=== PATIENT | male | born 1950 | race Caucasian/White ===

== ENCOUNTER 2019-05-02 02:12 | Inpatient (IN) ==
--- NOTE | 2019-04-26 08:18 | EKG Report ---
Test Performed on : 04/26/2019 07:56:41 AM Test Reason : PAT Blood Pressure : / mmHG Vent. Rate : 088 BPM Atrial Rate : 088 BPM P-R Int : 146 ms QRS Dur : 084 ms QT Int : 342 ms P-R-T Axes : 061 013 063 degrees QTc Int : 413 ms Normal sinus rhythm. Possible Inferior infarct , age undetermined Abnormal ECG No previous ECGs available Confirmed by Angle Navarro MD ([id number]) on 04/26/2019 12:25:55 PM
[2019-04-26 08:37] LABS: URINE SOURCE CLEAN CATCH
[2019-04-26 09:03] LABS: BILIRUBIN URINE NEGATIVE (NEGATIVE); BLOOD URINE NEGATIVE (NEGATIVE); COLOR YELLOW; GLUCOSE URINE NEGATIVE (NEGATIVE); KETONE URINE NEGATIVE (NEGATIVE); LEUKOCYTES URINE TRACE (NEGATIVE); NITRITE URINE NEGATIVE (NEGATIVE); PH URINE 5.5; PROTEIN URINE TRACE mg/dL (NEGATIVE); SP GRAVITY URINE 1.018; TURBIDITY URINE HAZY (CLEAR); UROBILINOGEN URINE NORMAL (NORMAL)
[2019-04-26 09:06] LABS: BASO# 0.07 X1000 (0.0-0.2); BASO% 0.7 % (0.0-0.8); EOS# 0.24 X1000 (0.0-0.7); EOS% 2.6 % (0.0-10.0); HEMATOCRIT 46.4 % (42.0-52.0); HEMOGLOBIN 15.5 g/dL (14.0-18.0); IMM GRAN# 0.02 X1000 (0.0-0.04); IMM GRAN% 0.2 % (0.0-0.5); LYMPH# 2.01 X1000 (1.2-3.4); LYMPH% 21.5 % (20.5-51.1); MCH 29.3 PG (27-31); MCHC 33.4 g/dL (33-37); MCV 87.7 FL (81-99); MONO# 0.44 X1000 (0.11-0.59); MONO% 4.7 % (1.7-9.3); NEUT# 6.58 X1000 (1.4-6.5); NEUT% 70.3 % (42.2-75.2); PLT 326 X1000 (130-400); RBC 5.29 XMIL (4.7-6.1); RDW 13.4 % (11.5-14.5); WBC 9.36 X1000 (4.8-10.8)
[2019-04-26 09:08] LABS: INR 0.99; PROTIME 13.2 Seconds (11.0-16.0)
[2019-04-26 09:09] LABS: PTT 27.7 Seconds (22.3-41.8)
[2019-04-26 09:10] LABS: UR EPITHELIAL CELLS >10 /HPF (<10); URINE BACTERIA NEGATIVE /HPF; URINE RBC <10 /HPF (<10); URINE WBC <10 /HPF (<10)
[2019-04-26 09:12] LABS: URINE CASTS NONE SEEN; URINE YEAST NONE SEEN
[2019-04-26 09:21] LABS: AGAP 13; BUN 25 mg/dL (8-22); CALCIUM 10.4 mg/dL (8.8-10.2); CHLORIDE 100 mmol/L (98-107); COSMO 284; CREATININE 1.1 mg/dL (0.7-1.2); ESTIMATED GFR > 60; GLUCOSE 99 mg/dL (70-104); POTASSIUM 4.3 mmol/L (3.5-5.1); SODIUM 140 mmol/L (136-145); TCO2 27 mmol/L (25-35)
[2019-04-26 09:28] LABS: HEMOGLOBIN A1C 6.6 % (4.8-6.0)
[2019-05-02] MEDS ORDERED: TORADOL ONE (07:15)
[2019-05-02] MEDS ORDERED: DURAMORPH ONE (07:15)
[2019-05-02] MEDS ORDERED: VANCOMYCIN ONE (07:16)
[2019-05-02] MEDS ORDERED: SENSORCAINE 0.25%/EPI 1:200,000 ONE (07:16)
[2019-05-02] MEDS ORDERED: SODIUM CHLORIDE 0.9% ONE (07:16)
[2019-05-02] MEDS ORDERED: EXPAREL 1.3% ONE (07:17)
[2019-05-02] MEDS ORDERED: NEOSPORIN G.U. IRRIGANT ONE (07:17)
[2019-05-02] MEDS ORDERED: DIPRIVAN 1% ONE ×2 (07:24→10:19)
[2019-05-02] MEDS ORDERED: LYRICA ONE (07:38)
[2019-05-02] MEDS ORDERED: REGLAN ONE (07:38)
[2019-05-02] MEDS ORDERED: PEPCID ONE (07:38)
[2019-05-02] MEDS ORDERED: COLACE ONE (07:38)
[2019-05-02] MEDS ORDERED: CELEBREX ONE (07:38)
[2019-05-02] MEDS ORDERED: LR 1,000 ML ONE (07:39)
[2019-05-02] MEDS ORDERED: KEFZOL 1 GM/D5W 2 GM/100 ML IVPB ONE (07:39)
[2019-05-02] MEDS ORDERED: D50W SYRINGE IV ONE ×2 (07:49→11:00)
[2019-05-02] MEDS ORDERED: FENTANYL ONE (08:24)
[2019-05-02] MEDS ORDERED: OFIRMEV 1000 MG/ISOTONIC SOLN 1,000 MG/100 ML BOTTLE ONE (08:28)
[2019-05-02] MEDS ORDERED: ZOFRAN ONE (08:28)
[2019-05-02] MEDS ORDERED: DECADRON ONE (08:28)
[2019-05-02] MEDS: CYKLOKAPRON 1,000 MG/NS 2,000 MG/200 ML IVPB ONE ×2 (08:50→10:04)
[2019-05-02 09:35] LABS: URINE SOURCE CATH
[2019-05-02 09:56] LABS: BILIRUBIN URINE NEGATIVE (NEGATIVE); BLOOD URINE NEGATIVE (NEGATIVE); COLOR YELLOW; GLUCOSE URINE NEGATIVE (NEGATIVE); KETONE URINE NEGATIVE (NEGATIVE); LEUKOCYTES URINE NEGATIVE (NEGATIVE); NITRITE URINE NEGATIVE (NEGATIVE); PH URINE 5.5; PROTEIN URINE NEGATIVE (NEGATIVE); SP GRAVITY URINE 1.022; TURBIDITY URINE CLEAR (CLEAR); UROBILINOGEN URINE NORMAL (NORMAL)
[2019-05-02 09:57] LABS: UR EPITHELIAL CELLS <10 /HPF (<10); URINE BACTERIA NEGATIVE /HPF; URINE RBC <10 /HPF (<10); URINE WBC <10 /HPF (<10)
--- NOTE | 2019-05-02 10:51 | OPERATIVE NOTE ---
PROCEDURE DATE: 05/02/2019 PREOPERATIVE DIAGNOSIS: Degenerative joint disease, right knee. POSTOPERATIVE DIAGNOSIS: Degenerative joint disease, right knee. PROCEDURE PERFORMED: Right total knee replacement. SURGEON: Dr. Alba Marie. [employer] CARRIER: Dr. Yossi Guardado. Dr. Guardado was served proper retraction and manipulation of the knee during the case. ANESTHESIA: Spinal. COMPLICATION: None. PROCEDURE IN DETAIL: A 68-year-old male presented for right total knee replacement. Risks, benefits, and no guarantees were discussed, and the patient is willing to proceed. He was taken to the operating room and satisfactory anesthesia obtained. The right leg was prepped and draped in the usual sterile fashion. A time-out was taken to confirm operative site, procedure, and patient. The leg was wrapped with an Esmarch and tourniquet inflated to 350 mmHg. A midline incision was made over the front of the knee followed by quad tendon sparing arthrotomy. The patella was everted and resurfaced with freehand technique. The patella was subluxed laterally and the knee flexed. An intramedullary hole made in the distal femur and the distal femoral cutting block secured in 5 degrees of valgus. Distal femoral resection was then made, and the femur sized to a size 7 femoral implant. The 4-in-1 block was secured and the anterior, posterior, and chamfer cuts sequentially made. Any remaining osteophytes were debrided from the femur. The knee was flexed. A PCL retractor placed behind the tibia, and the tibial cutting block secured. The tibial resection was made. The flexion and extension gaps noted to be roughly equal at 5 mm. Any osteophytes were debrided about the tibia. Tibia was sized to a size 7 tibial tray. A trial reduction was performed with a size 7 tibial tray, a 5 mm thick poly and a size 7 femur with good range of motion and stability. The patella was sized to a 38 medialized dome patella. The drill holes were placed for the patella and the femoral implant, and the trial components removed. The bony surfaces were thoroughly irrigated with pulsatile lavage. Cement with a gram of vancomycin was then utilized to cement a size 7 [employer] rotating platform tibial base plate, a size 7 right cruciate retaining femoral component, and a 38 medialized dome patella. Excess cement was removed while the cement cured. The joint capsule was injected with Exparel and a Hemovac drain placed. A size 7 cruciate retaining polyethylene bearing, 5 mm thick was inserted in the tibial tray and the knee reduced. Final range of motion was 0 to 130 degrees with midline patellar tracking. The arthrotomy was copiously irrigated with irrigant. It was closed over the drain with #1 Vicryl in the arthrotomy, 2-0 Vicryl in the subcutaneous and skin julito on the skin edges. Sterile dressings completed the closure and the patient was recovered from anesthesia and transferred to the recovery room in stable condition. No intraoperative complications were noted. Instrument count and sponge count were correct at the time of closure. cc: MD Yossi Laura MD
[2019-05-02] MEDS ORDERED: NS 1,000 ML ONE (10:55)
[2019-05-02] MEDS ORDERED: OXY IR PO PRN ×2 (11:15)
[2019-05-02] MEDS ORDERED: MORPHINE IV PRN ×3 (11:15)
[2019-05-02] MEDS ORDERED: ZOFRAN IV PRN (11:15)
[2019-05-02] MEDS ORDERED: ZOFRAN ODT PO PRN (11:15)
--- NOTE | 2019-05-02 11:44 | Diag Imaging Result Doc PS360 ---
EXAM: KNEE 1-2 VIEWS-RIGHT 05/02/2019 HISTORY: post op TECHNIQUE: Two views COMMENT: There is a total knee arthroplasty. There is no evidence of fracture or other acute bony abnormality. IMPRESSION: Postsurgical change. Electronically signed by Shahriar Chatman 05/02/2019 11:41 AM
--- NOTE | 2019-05-02 13:06 | ORTHOPAEDICS PROGRESS NOTE ---
DATE: 05/02/2019 SUBJECTIVE DATA: Mr. Farris is seen postoperative day 0 of his right total knee arthroplasty. He reports he is doing well at this time. He states he has not been up with physical therapy yet. He reports he will be going to rehab hopefully at [facility]. OBJECTIVE DATA: There is good sensation in the right lower extremity. There are good pedal pulses. There is good capillary refill in the toes. The bandages are clean and dry at this time. Vital signs are stable. Urinalysis is negative. ASSESSMENT: Degenerative joint disease right knee with a right total knee arthroplasty. PLAN: Plan on monitoring Mr. Farris overnight in the hospital and see how he is doing. We will check back on him in the morning. The plan is hopefully to get him set up for rehab placement on Wednesday. We will check back on him in the morning. Dictated by TAMIE Calixto for Zeferino Marie MD cc: TAMIE Calitxo MD
[2019-05-02] MEDS: ULTRAM PO SCH ×2 (13:28→20:28)
[2019-05-02] MEDS: TYLENOL PO SCH ×2 (13:28→20:29)
[2019-05-02] MEDS: NS 1,000 ML IV SCH ×3 (13:29→20:27)
--- NOTE | 2019-05-02 13:43 | CONSULTATION ---
DATE OF CONSULTATION: 05/02/2019 CHIEF COMPLAINT: This consult is for medical management. The patient is status post right total knee replacement today. HISTORY OF PRESENTING ILLNESS: This is a 68-year-old male who was admitted today to [facility] to the services of Orthopedics for a right total knee replacement. We have been consulted for medical management of this patient. He tolerated his surgery well, is resting comfortably and eating lunch at this time, and we will follow along during this hospitalization. PAST MEDICAL HISTORY: Hypertension and diabetes type 2. PAST SURGICAL HISTORY: Heart stents, right shoulder, left foot, and circumcision. FAMILY HISTORY: Reviewed and noncontributory. SOCIAL HISTORY: Currently lives with family. Denied any tobacco, alcohol or illicit drug use. ALLERGIES: He has no known drug allergies. HOME MEDICATIONS: He takes Celebrex 200 mg p.o. q.a.m., vitamin D3, 2000 units p.o. daily, vitamin B12, 2000 mcg p.o. q.a.m., vitamin D2, 2000 units p.o. q.a.m., glimepiride 4 mg p.o. b.i.d. will be held, lisinopril 20 mg p.o. q.a.m., Glucophage 500 mg p.o. b.i.d. will be held, and pravastatin 20 mg p.o. at bedtime. LABORATORY DATA: White blood cell count of 9.36, hemoglobin 15.5, hematocrit 46.4, platelets 326,000. PT and INR of 13.2 and 0.99. Sodium 140, potassium 4.3, chloride 100, CO2 27, BUN of 25, creatinine 1.1, glucose 99. He did drop his blood sugar prior to his surgery this morning at 50 and was given an amp of D50 and it came back up to 99. Hemoglobin A1c was 6.6. Urinalysis was negative. A right knee x-ray postop showed postsurgical changes. REVIEW OF SYSTEMS: He denied any fever, chills, blurred vision, dizziness, chest pain, coughing, shortness of breath. He denied any abdominal pain, constipation, diarrhea, burning or hurting with urination. States his right knee pain is under control at this time. PHYSICAL EXAMINATION: Vital signs: Temperature 97.5 degrees, pulse 92, respirations 18, blood pressure 135/81, saturating 97% on room air. General: This is a 68-year-old male who is lying in the bed and answers questions appropriately. HEENT: Normocephalic and atraumatic. Normal ENT inspection. Oropharynx and nares are clear. Eyes: Pupils are equal, round, reactive to light and accommodation. Extraocular movements are intact. Neck: Normal inspection, normal range of motion. Lungs: Clear to auscultation bilaterally with equal lung expansion and chest wall movement. Heart: Regular rate and rhythm. No murmurs, rubs, or gallops. Abdomen: Soft, nontender, nondistended. Bowel sounds are present x4 quadrants. Musculoskeletal: 5/5 strength to bilateral upper extremities and left lower. He has a dressing in place to his right knee status post his total knee replacement with ice pack in place. Neurological: The cranial nerves 2-12 appear grossly intact. ASSESSMENT: 1. Status post right total knee replacement today. 2. Diabetes type 2. 3. Hypertension. PLAN: We are going to hold his antidiabetic medications at this time as he was hypoglycemic when he first came in. I think that is probably to him being n.p.o. prior to the surgery, but we will monitor that with pattern blood sugars. Continue his normal saline at 75 mL an hour. Pain control as previously ordered per Orthopedics. He will be on a diabetic diet. We will continue his home medications as previously identified. Recheck a BMP in the a.m. and hemoglobin and hematocrit in the a.m. as well, and further orders as seen by the attending. Thank you for this consultation. We will follow him throughout the remainder of his hospitalization. Dictated by TAMIE Bravo for Kle Najera MD cc: TAMIE Bravo MD John R. Riehl, MD Anna M. Dumas, CRNP
[2019-05-02] MEDS: KEFZOL 2 GM/D5W 2 GM/50 ML IVPB IV SCH (15:36)
--- NOTE | 2019-05-02 16:57 | Diag Imaging Result Doc PS360 ---
CHEST-1 VIEW - 05/02/2019 INDICATION: rehab COMPARISON: None FINDINGS: There are extensive linear opacities in the midlungs bilaterally suggesting atelectasis. There is mild cardiomegaly. Pulmonary vascularity is somewhat distended. No edema. No pneumothorax or pleural effusion. IMPRESSION: Cardiomegaly. Extensive central linear atelectasis bilaterally. Electronically signed by Pool Niño 05/02/2019 4:54 PM
[2019-05-02] MEDS ORDERED: GLUCOPHAGE XR PO SCH (17:00)
[2019-05-02] MEDS: GLUCOPHAGE PO SCH (18:00)
--- NOTE | 2019-05-02 18:54 | CONSULTATION ---
DATE OF CONSULTATION: 05/02/2019 ADDENDUM: A 68-year-old gentleman with diabetes and hypertension, who is here for right knee replacement electively per Dr. Marie. We have been consulted for management. He apparently sees Mehreen Lemus, so had seen her before. In any case, the patient was evaluated. He did have some preoperative hypoglycemia, so we will keep a close eye on him. His physical exam is unremarkable. Regular rate and rhythm. Pulmonary: Bilateral breath sounds, clear to auscultation. ASSESSMENT AND PLAN: 1. As far as his hypertension, we will continue his regular medications and follow. We will monitor blood pressure along with his other medications. 2. Diabetes. He had some hypoglycemia. We will have to be careful. He has had 2 doses of dextrose, but now his sugars have risen to above 200, so I am going to resume his metformin at low dose. He is very nervous about missing his dose. We will see how he does, and keep an eye closely on his blood sugars. 3. Disposition pending his clinical status. Hopefully home soon. I think the plan will be he is going to be here through Wednesday. We will continue to monitor. cc: MD Zeferino Garcia MD
[2019-05-02] MEDS: CELEBREX PO SCH (20:28)
[2019-05-02] MEDS: PRAVACHOL PO SCH (20:29)
[2019-05-02] MEDS: COLACE PO SCH (20:30)
[2019-05-02] MEDS ORDERED: AMARYL PO SCH (21:00)
[2019-05-02] MEDS: HUMULIN R SUBQ SCH (21:28)
[2019-05-03] MEDS: KEFZOL 2 GM/D5W 2 GM/50 ML IVPB IV SCH (00:20)
[2019-05-03] MEDS: HUMULIN R SUBQ SCH ×6 (01:02→21:00)
[2019-05-03] MEDS: ULTRAM PO SCH ×4 (02:19→19:46)
[2019-05-03] MEDS: TYLENOL PO SCH ×4 (02:19→19:45)
[2019-05-03 05:36] LABS: HEMATOCRIT 38.3 % (42.0-52.0); HEMOGLOBIN 12.7 g/dL (14.0-18.0)
[2019-05-03 05:49] LABS: HEMOGLOBIN A1C 6.3 % (4.8-6.0)
[2019-05-03 06:01] LABS: CALCIUM 9.1 mg/dL (8.8-10.2); CREATININE 1.2 mg/dL (0.7-1.2); POTASSIUM 5.1 mmol/L (3.5-5.1)
--- NOTE | 2019-05-03 07:58 | ORTHOPAEDICS PROGRESS NOTE ---
DATE: 05/03/2019 SUBJECTIVE: Mr. Farris in seen status post total knee replacement. OBJECTIVE: He is afebrile with stable vital signs. He did have marginal blood sugars which were elevated, but they are better now. PLAN: He is to be mobilized today. He is inpatient status and we will plan on rehab placement on Wednesday. We will discontinue lines and mobilizing him today. cc: Zeferino Marie MD
[2019-05-03] MEDS ORDERED: ERGOCALCIFEROL PO SCH (09:00)
[2019-05-03] MEDS ORDERED: NON-FORMULARY MED (Celecoxib 200 MG) PO SCH (09:00)
[2019-05-03] MEDS: GLUCOPHAGE PO SCH ×2 (09:08→17:43)
[2019-05-03] MEDS: COLACE PO SCH ×2 (09:08→19:46)
[2019-05-03] MEDS: CELEBREX PO SCH (09:08)
[2019-05-03] MEDS: ASPIRIN PO SCH (09:08)
[2019-05-03] MEDS: VITAMIN D PO SCH (09:09)
[2019-05-03] MEDS: VITAMIN B-12 PO SCH (09:09)
[2019-05-03] MEDS: PEPCID PO SCH (09:09)
[2019-05-03] MEDS: PRINIVIL PO SCH (09:09)
--- NOTE | 2019-05-03 19:15 | PROGRESS NOTE ---
DATE: 05/03/2019 SUBJECTIVE: Patient has no major issues. He is pretty well. He is happy. He seems to be doing well. No major issues. OBJECTIVE: Vital Signs: Blood pressure is 151/84, heart rate of 71, respiratory 16, temperature 98.1 degrees, 95% on room air. Cardiovascular: Regular rate and rhythm. Pulmonary: Bilateral breath sounds. Clear to auscultation. GI: Soft, nontender, nondistended. Bowel sounds are positive. LABORATORY DATA: Hemoglobin and hematocrit 12 and 38. Rest of his labs looked pretty much intact. Sugars are still a little bit on the high side. His A1c is only 6.3. PROBLEM LIST: 1. Type 2 diabetes. We will resume all medications. He had some preoperative hypoglycemia but that seems to have disappeared, so I am going to put him back on his glimepiride. We had already resumed his metformin. His diabetes is very well controlled as an outpatient. We will continue to maintain that here. 2. Hypertension. Continue regular medications. 3. Right total knee replacement, postoperative day 1. Siu is out. He is he is doing well from that standpoint. He does have a little bit of renal insufficiency, so I am going to repeat his basic metabolic tomorrow just to monitor his kidney function. DISPOSITION: Plan will be rehab on Wednesday, which hopefully that will occur Wednesday. I am going to hold the Celebrex just because of his renal insufficiency and we will follow. cc: MD Zeferino Garcia MD
[2019-05-03] MEDS: AMARYL PO SCH (19:30)
[2019-05-03] MEDS: PRAVACHOL PO SCH (19:45)
[2019-05-03] MEDS: PERIDEX MT SCH (19:47)
[2019-05-04] MEDS: ULTRAM PO SCH ×4 (02:33→22:24)
[2019-05-04] MEDS: TYLENOL PO SCH ×4 (02:33→22:24)
[2019-05-04] MEDS: COLACE PO SCH ×3 (03:06→22:23)
[2019-05-04] MEDS: PRAVACHOL PO SCH ×2 (03:06→22:23)
[2019-05-04] MEDS: PERIDEX MT SCH ×3 (03:09→22:23)
[2019-05-04 06:14] LABS: HEMATOCRIT 39.4 % (42.0-52.0); HEMOGLOBIN 12.8 g/dL (14.0-18.0)
[2019-05-04 06:42] LABS: AGAP 10; BUN 33 mg/dL (8-22); CALCIUM 9.3 mg/dL (8.8-10.2); CHLORIDE 101 mmol/L (98-107); COSMO 281; CREATININE 0.9 mg/dL (0.7-1.2); ESTIMATED GFR > 60; GLUCOSE 101 mg/dL (70-104); POTASSIUM 4.6 mmol/L (3.5-5.1); SODIUM 137 mmol/L (136-145); TCO2 26 mmol/L (25-35)
[2019-05-04] MEDS: ASPIRIN PO SCH (09:43)
[2019-05-04] MEDS: PEPCID PO SCH (09:43)
[2019-05-04] MEDS: PRINIVIL PO SCH (09:43)
[2019-05-04] MEDS: VITAMIN B-12 PO SCH (09:44)
[2019-05-04] MEDS: VITAMIN D PO SCH (09:45)
[2019-05-04] MEDS: GLUCOPHAGE PO SCH ×2 (13:10→16:58)
[2019-05-04] MEDS: AMARYL PO SCH ×2 (13:10→22:23)
[2019-05-04] MEDS: HUMULIN R SUBQ SCH ×3 (13:11→22:20)
--- NOTE | 2019-05-04 15:00 | ORTHOPAEDICS PROGRESS NOTE ---
DATE: 05/04/2019 SUBJECTIVE DATA: Mr. Farris is seen for his right total knee arthroplasty that he recently had on Wednesday. He states he has been doing well at this time. He reports that he did get up and walk around the nursing station and then walked back to his room with assistance. OBJECTIVE DATA: Upon examination, the right lower extremity bandages are clean and dry. There is good range of motion of the right knee. There is a negative Homans sign. There are good pedal pulses. There is good capillary refill in the toes. There is good sensation. ASSESSMENT: Degenerative joint disease of right knee with right total knee arthroplasty. PLAN: We will plan on hopefully getting Mr. Farris out tomorrow to rehab. He will need to have his julito removed in rehab. We will need to see him in the office in roughly 10 to 14 days for a recheck. We will check back on him then. We will see him in the morning. Dictated by TAMIE Calixto for Zeferino Marie MD cc: TAMIE Calixto MD
--- NOTE | 2019-05-04 19:20 | PROGRESS NOTE ---
DATE: 05/04/2019 SUBJECTIVE: Patient has no major complaints. OBJECTIVE: Blood pressure is 127/67, heart rate of 96, respiratory rate of 20, temperature 98.4 degrees, 96% on room air.Cardiovascular: Regular rate and rhythm. Pulmonary: Bilateral breath sounds. Clear to auscultation. Gastrointestinal: Soft, nontender, nondistended. Bowel sounds are positive. LABORATORY DATA: Hemoglobin and hematocrit 12 and 39, platelets are okay. Sugars have actually been pretty good on his current medications. PROBLEM LIST: 1. Type 2 diabetes. He is stable on glimepiride and metformin. 2. Hypertension. Also, stable on current medications. DISPOSITION: The plan is, from what I understand, likely rehab tomorrow. We will continue to follow along with you until the patient is stabilized, but anticipate discharge tomorrow. cc: MD Zeferino Garcia MD
[2019-05-05] MEDS: ULTRAM PO SCH ×2 (06:01→10:59)
[2019-05-05] MEDS: TYLENOL PO SCH ×2 (06:03→11:00)
[2019-05-05 06:17] LABS: HEMATOCRIT 40.4 % (42.0-52.0); HEMOGLOBIN 13.1 g/dL (14.0-18.0)
[2019-05-05] MEDS: HUMULIN R SUBQ SCH ×2 (07:00→11:12)
--- NOTE | 2019-05-05 08:15 | DISCHARGE SUMMARY ---
ADMISSION DATE: 05/02/2019 DISCHARGE DATE: 05/05/2019 ADMITTING DIAGNOSIS: Degenerative joint disease of the right knee. DISCHARGE DIAGNOSIS: 1. Degenerative joint disease of the right knee. 2. High blood pressure. 3. Diabetes. 4. Rheumatoid arthritis. PROCEDURE: Right total knee arthroplasty. ALLERGIES: No known drug allergies. PAST MEDICAL HISTORY: Includes anxiety, depression, diabetes, high blood pressure, rheumatoid arthritis. CURRENT MEDICATIONS: Include 1. Celebrex 2 mg daily. 2. Glimepiride 4 mg b.i.d. 3. Lisinopril 20 mg daily. 4. Metformin 500 mg ER b.i.d. 5. Pravastatin 40 mg daily. 6. Vitamin B12 daily. HOSPITAL COURSE: The patient was taken to the operating room on 05/02/2019 for a right total knee arthroplasty. He tolerated the procedure well. He was taken to the recovery room. He did well there and was brought to the regular surgical floor. Mechanical DVT prophylaxis was initiated. Routine postop antibiotics were administered. The drain was removed on postop day 2 with about 75 mL of drainage. Physical therapy was started and patient walked with walker and physical therapy without difficulty. He was able to spontaneously void after Siu was removed. Then transitioned to oral pain medication without difficulty. His incision remained clean, dry, and intact during the hospital course. There has been no pain with calf squeeze. Hospitalist was here to help us out with his diabetes management. He felt ready to be discharged home on 05/05/2019. DISPOSITION: He likes to be discharged to rehab facility at this time. He is to follow up with Dr. Marie in about 2 weeks. Prescriptions were written for Lengby, aspirin and doxycycline. Discharge instructions will be gone over with patient with the survey crew chief. Dictated by TAMIE Calixto for Zeferino Marie MD cc: TAMIE Calixto MD
[2019-05-05] MEDS: PRINIVIL PO SCH (09:03)
[2019-05-05] MEDS: ASPIRIN PO SCH (09:04)
[2019-05-05] MEDS: VITAMIN D PO SCH (09:04)
[2019-05-05] MEDS: PERIDEX MT SCH (09:04)
[2019-05-05] MEDS: AMARYL PO SCH (09:04)
[2019-05-05] MEDS: VITAMIN B-12 PO SCH (09:04)
[2019-05-05] MEDS: GLUCOPHAGE PO SCH (09:04)
[2019-05-05] MEDS: COLACE PO SCH (09:05)
[2019-05-05] MEDS: PEPCID PO SCH (09:05)
[2019-05-05] MEDS ORDERED: LACTULOSE PO PRN (11:15)
[2019-05-05 11:34] VITALS: BP 125/66
--- NOTE | 2019-05-06 17:14 | DISCHARGE SUMMARY ---
ADMISSION DATE: 05/02/2019 DISCHARGE DATE: 05/05/2019 HOSPITAL COURSE: The patient is doing well and seen the day of discharge. Vitals were stable, which was the 30th. Hemoglobin and hematocrit stable. Sugars have been overall stable. PHYSICAL EXAMINATION: Exam is really unchanged. Cardiovascular: Regular rate and rhythm. Pulmonary: Bilateral breath sounds. Clear to auscultation. PLAN: The patient is stable for discharge and will be transferred to rehab today. I did adjust his medicines a little bit because the group home rehab was having issues with his vitamin D and vitamin B12 dosing, so we adjusted those to B12 of 1000 mcg daily and vitamin D of three 2000 units daily. Discharge condition is stable. We also initiated MiraLAX for his bowels. cc: MD Zeferino Garcia MD
== END 2019-05-05 15:33 | DRG 470 ==
LOC: SURHOLD 02:12 → SUATTDRO 02:12 → 4N 09:21
PROVIDERS: ADMIT Orthopaedic Surgery Adult Reconstructive Orthopaedic Surgery; ATTEND Internal Medicine